=== PATIENT | female | born 1960 | race Caucasian/White ===

== ENCOUNTER 2021-07-22 09:12 | Inpatient (IN) | payer BC ==
[~2021-07-22] VITALS: Ht 167.6 cm; Wt 81.8 kg
--- NOTE | 2021-07-22 09:49 | NUR ---
PROVIDER AT BEDSIDE
[2021-07-22] MEDS ORDERED: morphine 2 MG/ML inj. syringe IV ONE ×4 (09:55→13:45)
[2021-07-22] MEDS ORDERED: ondansetron/PF 4mg/2ml inj IV ONE (09:55)
[2021-07-22 10:00] LABS: BASOPHILS % (AUTO) 0.2 % (0-1); EOSINOPHILS % (AUTO) 0.2 % (0-6); HEMATOCRIT 39.1 % (35.0-45.0); HEMOGLOBIN 13.4 g/dl (12.0-16.0); LYMPHOCYTES # (AUTO) 1.6 X10'3 (1.1-4.8); LYMPHOCYTES % (AUTO) 13.5 % (21-51); MEAN CORPUSCULAR HEMOGLOBIN 32.7 PG (27.0-31.0); MEAN CORPUSCULAR HGB CONC 34.2 g/dL (33.0-36.5); MEAN CORPUSCULAR VOLUME 95.4 FL (78-98); MEAN PLATELET VOLUME 8.5 FL (7.4-10.4); MONOCYTES # (AUTO) 0.6 X10'3 (0-0.9); MONOCYTES % (AUTO) 4.7 % (2-12); NEUTROPHILS # (AUTO) 9.9 X10'3 (1.8-7.7); NEUTROPHILS % (AUTO) 81.4 % (42-75); PLATELET COUNT 353 X10'3 (140-440); RED CELL DISTRIBUTION WIDTH 13.1 % (11.5-14.5); WHITE BLOOD COUNT 12.1 X10'3 (4.5-11.0)
[2021-07-22 10:20] LABS: ALANINE AMINOTRANSFERASE 23 U/L (12-78); ALBUMIN 3.4 G/DL (3.4-5.0); ALBUMIN/GLOBULIN RATIO 0.9 (1.1-1.5); ALKALINE PHOSPHATASE 68 IU/L (46-116); ANION GAP 14 (8-16); ASPARTATE AMINO TRANSFERASE 24 U/L (10-37); BILIRUBIN,TOTAL 0.3 MG/DL (0.1-1.0); BLOOD UREA NITROGEN 17 MG/DL (7-18); BUN/CREATININE RATIO 16.8 (6.6-38.0); CHLORIDE 105 MMOL/L (99-107); CREATININE 1.01 MG/DL (0.40-0.90); GLUCOSE 119 MG/DL (70-104); LIPASE 84 U/L (73-393); MAGNESIUM 1.9 MG/DL (1.5-2.4); POTASSIUM 3.3 MMOL/L (3.5-5.1); SODIUM 140 MMOL/L (135-145); TOTAL CARBON DIOXIDE 21.1 MMOL/L (24-32); TOTAL PROTEIN 7.3 G/DL (6.4-8.2); eGFR 56 ML/MIN
--- NOTE | 2021-07-22 10:32 | NUR ---
JAH DICKINSON [phone].
[2021-07-22] MEDS ORDERED: ringers solution, lactated 1000ml IV soln IV ONE (10:35)
[2021-07-22 12:44] LABS: CLARITY,URINE CLOUDY (Clear); COLOR,URINE YELLOW (Yellow); GLUCOSE, URINE NEGATIVE (Neg); KETONES,URINE >=80 mg/dl (Neg); LEUKOCYTE ESTERASE ,URINE TRACE (Neg); NITRITES, URINE NEGATIVE (Neg); OCCULT BLOOD,URINE LARGE (Neg); PROTEIN,URINE TRACE mg/dl (Neg); UROBILINOGEN,URINE 0.2 E.U/dL (0.2-1.0)
[2021-07-22 12:54] LABS: UA COLLECTION TYPE CLN CATCH MIDSTREAM
[2021-07-22 12:55] LABS: SQUAMOUS EPITHELIAL CELL,UR MODERATE /LPF (FEW)
[2021-07-22 12:56] LABS: MUCUS STRANDS MANY /LPF (Neg); TRANSITIONAL EPI CELLS,URINE FEW /HPF
[2021-07-22 12:57] LABS: BACTERIA,URINE 4+ /HPF (Neg); RBC,URINE TNTC /HPF (0-2)
[2021-07-22 12:58] LABS: CAL OXALATE CRYSTALS FEW /HPF (NEGATIVE)
[2021-07-22] MEDS ORDERED: BUPR-317 PO (13:19)
[2021-07-22] MEDS ORDERED: ESTR0.9T2 PO (13:19)
[2021-07-22] MEDS ORDERED: LISI10TA27 PO (13:19)
[2021-07-22] MEDS ORDERED: OMEG10006 PO (13:27)
[2021-07-22] MEDS ORDERED: CHOL10006 PO (13:27)
[2021-07-22] MEDS ORDERED: CLON0.1T2 PO (13:27)
[2021-07-22] MEDS ORDERED: ASPI-611 PO (13:27)
[2021-07-22] MEDS ORDERED: magnesium 4gm in 100ml NS 100 ML IV PRN (14:10)
[2021-07-22] MEDS ORDERED: magnesium 2GM in 50ml NS 50 ML IV PRN (14:10)
[2021-07-22] MEDS ORDERED: potassium CL 10mEq/100ml bag 100 ML IV PRN (14:10)
[2021-07-22] MEDS ORDERED: morphine 2 MG/ML inj. syringe IV PRN ×2 (14:10)
[2021-07-22] MEDS ORDERED: potassium Cl 20 mEq SR tablet PO PRN ×2 (14:10)
[2021-07-22] MEDS ORDERED: acetaminophen 325mg tablet PO PRN (14:10)
[2021-07-22] MEDS ORDERED: magnesium Cl slow-release 64mg tablet PO PRN (14:10)
[2021-07-22 15:14] LABS: MAGNESIUM 1.8 MG/DL (1.5-2.4); POTASSIUM 4.1 MMOL/L (3.5-5.1)
[2021-07-22] MEDS: normal saline 1000ml 1,000 ML IV SCH ×2 (16:48→20:41)
--- NOTE | 2021-07-22 18:16 | NUR ---
PATIENT SITTING UP ON BED EATING DINNER, STATES SHE WANTS TO GO HOME IF SHE IS GOING TO BE IN THE ER ALL NIGHT. PAGE SENT TO HOSPITALIST TO SPEAK WITH THE PATIENT. PATIENT ENCOURAGED TO STAY, WATER PROVIDED, CALL LIGHT WITHIN REACH.
--- NOTE | 2021-07-22 18:58 | NUR ---
PATIENT RESTING QUIETLY IN BED, COMMUNICATING WELL, ORAL WATER INTAKE, VITALS ARE STABLE, AND REPORTING THAT, " THEPAIN IS MUCH MORE MANAGABLE AND I WANT TO GO HOME AND REST".
[2021-07-22] MEDS ORDERED: morphine 4 MG/ML inj SYRINge IV PRN (19:25)
[2021-07-22] MEDS: K and/or MAG REPLACEMENT MC SCH (20:00)
[2021-07-22] MEDS: HYDROcodone/acetaminophen 5mg/325mg tablet PO PRN (20:41)
[2021-07-22] MEDS: ondansetron/PF 4mg/2ml inj IV PRN (20:45)
[2021-07-22 20:48] VITALS: BP 163/75
[2021-07-22] MEDS ORDERED: tamsulosin 0.4mg capsule PO SCH (21:00)
[2021-07-22] MEDS: ciprofloxacin lact 400MG/200ML 200 ML IV SCH (21:53)
[2021-07-22] MEDS: morphine 4 MG/ML inj SYRINge IV PRN (23:03)
--- NOTE | 2021-07-22 23:49 | NUR ---
EXPLAINED TO PT RATIONALE FOR MRSA NASAL SWAB. PT DECLINED MRSA NASALSWAB
[2021-07-23] VITALS: BP 128/65
[2021-07-23] MEDS: morphine 4 MG/ML inj SYRINge IV PRN ×3 (01:20→09:24)
[2021-07-23] MEDS: HYDROcodone/acetaminophen 5mg/325mg tablet PO PRN (02:19)
--- NOTE | 2021-07-23 05:32 | NUR ---
URINE STRAINED OVERNIGHT . NO STONE NOTED
[2021-07-23 06:02] LABS: BASOPHILS % (AUTO) 0.1 % (0-1); EOSINOPHILS % (AUTO) 0.1 % (0-6); HEMATOCRIT 35.6 % (35.0-45.0); HEMOGLOBIN 12.1 g/dl (12.0-16.0); LYMPHOCYTES # (AUTO) 1.7 X10'3 (1.1-4.8); LYMPHOCYTES % (AUTO) 12.9 % (21-51); MEAN CORPUSCULAR HEMOGLOBIN 32.6 PG (27.0-31.0); MEAN CORPUSCULAR HGB CONC 34.1 g/dL (33.0-36.5); MEAN CORPUSCULAR VOLUME 95.6 FL (78-98); MEAN PLATELET VOLUME 8.5 FL (7.4-10.4); MONOCYTES # (AUTO) 1.5 X10'3 (0-0.9); MONOCYTES % (AUTO) 11.1 % (2-12); NEUTROPHILS # (AUTO) 9.9 X10'3 (1.8-7.7); NEUTROPHILS % (AUTO) 75.8 % (42-75); PLATELET COUNT 295 X10'3 (140-440); RED BLOOD COUNT 3.72 X10'6 (4.20-5.60); RED CELL DISTRIBUTION WIDTH 12.8 % (11.5-14.5); WHITE BLOOD COUNT 13.1 X10'3 (4.5-11.0)
[2021-07-23 06:16] LABS: ALBUMIN 2.8 G/DL (3.4-5.0); ANION GAP 12 (8-16); BLOOD UREA NITROGEN 16 MG/DL (7-18); BUN/CREATININE RATIO 12.4 (6.6-38.0); CALCIUM 8.3 MG/DL (8.5-10.1); CHLORIDE 104 MMOL/L (99-107); CREATININE 1.29 MG/DL (0.40-0.90); GLUCOSE 114 MG/DL (70-104); MAGNESIUM 1.8 MG/DL (1.5-2.4); POTASSIUM 3.9 MMOL/L (3.5-5.1); SODIUM 139 MMOL/L (135-145); TOTAL CARBON DIOXIDE 22.8 MMOL/L (24-32); eGFR 42 ML/MIN
[2021-07-23 07:30] VITALS: BP 110/58
[2021-07-23] MEDS: K and/or MAG REPLACEMENT MC SCH (08:00)
[2021-07-23] MEDS: ciprofloxacin lact 400MG/200ML 200 ML IV SCH (08:21)
[2021-07-23] MEDS: normal saline 1000ml 1,000 ML IV SCH (08:21)
[2021-07-23] MEDS: ondansetron/PF 4mg/2ml inj IV PRN (09:56)
[2021-07-23 11:30] VITALS: BP 112/40
--- NOTE | 2021-07-23 13:46 | NUR ---
PAGER ID: [phone] MESSAGE: [id number]- Ana Lewis- patient wanting to dc due to snow where she lives ([facility]). She was still painful this morning and nauseated. Gave Morphine and Zofran- Alejandro [phone]
--- NOTE | 2021-07-23 14:50 | NUR ---
Patient agitated and wanting to speak to relief charge nurse about being dc'd. Let her know that Dr. Carlin was paged. Charge Elinor went to speak to patient and explained to patient the risks of leaving AMA. Patient raised voice while she was speaking to relief charge nurse. Patient stated that there was snow where she is at and that it is dire that she was to be dc as well as "the urologist even said so that the infection wasn't a big deal and that I could go home." Dr. Carlin called and stated that patient's WBC increased as well as her creatinine increased and although Dr. Correa was ok for patient to dc, she did not feel that the patient could be safely dc'd and concerned patient would develop sepsis if she were to be dc'd. Dr. Carlin stated, "I'm not willing to take that risk." Relayed Dr. Carlin call to patient explaining to patient the risks if patient were to leave AMA. Patient responded she was "leaving regardless. Do you want to take this out or do you want me to rip it out?" as she pointed to IV. Patient adamament that her would be in to take her home and she is leaving. Patient IV was dc'd. Patient took all personal belongings and ambulated herself out.
[2021-07-23] MEDS ORDERED: lactobacillus rhamnosus 10,000 MMU CELLS/CAPSULE PO SCH (20:00)
== END 2021-07-23 15:00 | disposition left against medical advice (07) | DRG 690 ==
LOC: ER 09:13 → ED HOLD 14:10 → SUR 3N 20:33
PROVIDERS: ADMIT Internal Medicine; ATTEND Internal Medicine
DX: N12 Tubulo-interstitial nephritis, not specified as acute or chronic (principal); I10 Essential (primary) hypertension; N20.0 Calculus of kidney; Z53.29 Procedure and treatment not carried out because of patient's decision for other reasons; Z85.41 Personal history of malignant neoplasm of cervix uteri; Z90.710 Acquired absence of both cervix and uterus; Z88.8 Allergy status to other drugs, medicaments and biological substances; Z79.899 Other long term (current) drug therapy
CPT/HCPCS: 36415; 74176; 80048; 80053; 81001; 83605; 83690; 83735; 84132; 84145; 85025; 87088; 96361; 96374; 96375; 96376; 99285; G0378; J0744; J2270; J2405; J7030; J7120